=== PATIENT | female | born 1950 | race Caucasian/White ===

== ENCOUNTER 2020-02-06 23:01 | Emergency (ER) | payer MEDICARE ==
[~2020-02-06] VITALS: Ht 152.4 cm; Wt 54.4 kg
--- NOTE | 2020-02-06 23:01 | NUR ---
2258- PT BIBA ALS. FULL ARREST. TAKEN TO BED 11
--- NOTE | 2020-02-06 23:01 | NUR ---
PT WAS BROUGHT IN BY EMS IN FULL ARREST AT 2255 PT EMS, PT WAS FOUND IN AGONAL BREATHING AND CODED IN ROUTE. EMS GAVE EPI MEDICATION PER ACLS PROTOCOL AND IO WAS INITIATED. IN BED 11, RN, EMT, RT AND ERMD AT BEDSIDE PERFORMING CPR/ACLS.
--- NOTE | 2020-02-06 23:02 | NUR ---
PT PRONOUNCED BY DR. CORONA AT THIS TIME
--- NOTE | 2020-02-06 23:02 | NUR ---
TIME OF 2302. FAMILY, [facility] AND [facility] TO BE CALLED.
--- NOTE | 2020-02-06 23:02 | NUR ---
Note rereone in EDM - 02/07/20 at 0204 by [email or web address] PT WAS BROUGHT IN BE EMS IN FULL ARREST. PT EMS, PT WAS FOUND IN AGONAL BREATHING AND CODED IN ROUTE. EMS GAVE EPI PER ACLS PROTOCOL AND IO WAS INITIATED. IN BED 11, RN, EMT, RT AND ERMD AT BEDSIDE PERFORMING CPR/ACLS.
--- NOTE | 2020-02-06 23:05 | NUR ---
PLEASE SEE CODE BLUE SHEET FOR FURTHER INFORMATION
--- NOTE | 2020-02-06 23:45 | NUR ---
CALLED MEDICAL CLAIMS REPRESENTATIVE, WILL CALL BACK
--- NOTE | 2020-02-06 23:55 | NUR ---
SPOKE TO [employer], JOLEEN BARRAGAN. PT TO BE RELEASED AT THIS TIME. [employer] WILL CALL BACK FOR FURTHER QUESTIONS.
--- NOTE | 2020-02-07 00:10 | NUR ---
[facility] WAS CALLED AND REPORT GIVEN. PT IS NOT A CANNIDATE. CASE NUMBER IS [id number]
--- NOTE | 2020-02-07 00:12 | NUR ---
CAME TO ER, DAVID SALAZAR RN SPOKE TO HIM. PER , PT HAD CHIRROSIS AND HTN. PT WAS DIAGNOSED WITH COVID 2 WEEKS AGO AND ON Tuesday WAS ADMITTED TO [facility]. PT WAS RELEASED FROM [facility] YESTERDAY.
--- NOTE | 2020-02-07 01:28 | NUR ---
FAMILY AT BEDSIDE
--- NOTE | 2020-02-07 01:29 | NUR ---
[facility] PHONE NUMBER IS [phone]
--- NOTE | 2020-02-07 01:53 | NUR ---
PT BODY MOVED TO COLD STORAGE
--- NOTE | 2020-02-07 01:59 | NUR ---
jessi phone number [phone] son mady [phone]
--- NOTE | 2020-02-07 02:08 | NUR ---
PT ITEMS WERE GIVEN TO FAMILY. PT STATED THEY ARE GOING TO CALL A MORTUARY AND CONTACT SOON POSSIBLE.PT IS IN THE EXTERNAL MORGUE
--- NOTE | 2020-02-07 09:37 | NUR ---
SPOKE TO SENIOR TRAINING AND DEVELOPMENT REP OFFICE- [facility]. CASE # [id number]. BODY IS RELEASED BY SENIOR TRAINING AND DEVELOPMENT REP. 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
== END 2020-02-06 23:02 ==
LOC: MED 23:01
DX: U07.1 COVID-19 (principal); I46.9 Cardiac arrest, cause unspecified
CPT/HCPCS: 99285